=== PATIENT | male | born 1960 | race Caucasian/White ===

== ENCOUNTER 2018-04-28 06:56 | Day surgery (SDC) | payer OTHER ==
[~2018-04-28] VITALS: Ht 171.4 cm; Wt 94.0 kg
[2018-04-28] VITALS (12 sets, daily range): BP systolic 96–108; BP diastolic 56–74; PULSE 66–78; TEMP 97.7–97.9
[2018-04-28 07:43] LABS: HEMATOCRIT 42.7 % (42.0-52.0); HEMOGLOBIN 14.9 g/dl (13.5-18.0); MEAN CELL VOLUME 92 fl (80.0-100.0); MEAN CORPUSCULAR HEMOGLOBIN 32 pg (27.0-31.0); MEAN CORPUSCULAR HGB CONC 35 g/dl (33.0-37.0); MEAN PLATELET VOLUME 11.1 fl (7.4-10.4); PLATELET COUNT 201 K/mm3 (130-400); RED BLOOD COUNT 4.64 M/mm3 (4.20-5.60); REDCELL DISTRIBUTION WIDTH-CV 12.2 % (11.5-14.5)
[2018-04-28] MEDS ORDERED: PRINIVIL5 MG PO (07:58)
[2018-04-28] MEDS ORDERED: LIPITOR20 MG PO (07:58)
[2018-04-28] MEDS ORDERED: COREG 3.123.125 MG/T PO (07:58)
[2018-04-28] MEDS ORDERED: LASIX 20MG TABL20 MG PO (07:59)
[2018-04-28] MEDS ORDERED: ASPIRIN E.C. 8181 MG PO (07:59)
[2018-04-28 08:00] LABS: CALCIUM 9.6 mg/dL (8.4-10.2); CREATININE, serum 0.96 mg/dL (0.66-1.25); POTASSIUM 4.1 mmol/L (3.4-5.0); PROTHROMBIN TIME 11.6 SECONDS (9.7-12.8)
[2018-04-28] MEDS ORDERED: FLONASE NASAL S16 GM NS (08:00)
[2018-04-28] MEDS ORDERED: ZYRTEC 10MG10 MG PO (08:00)
[2018-04-28] MEDS ORDERED: VITAMIND3 5000 PO (08:01)
== END 2018-04-28 16:29 | disposition home or self-care (01) ==
LOC: COL.CAR 06:56
PROVIDERS: Internal Medicine Cardiovascular Disease
DX: I08.1 Rheumatic disorders of both mitral and tricuspid valves (principal); I50.9 Heart failure, unspecified; I27.20 Pulmonary hypertension, unspecified; Z79.82 Long term (current) use of aspirin; Z79.899 Other long term (current) drug therapy
CPT/HCPCS: J1644; J2250; J3010; Q9967

== ENCOUNTER 2018-10-30 15:35 | Outpatient (RCR) | payer OTHER ==
[~2018-10-30 15:35] MED LIST: ASPIRIN E.C. 8181 MG PO; COREG 3.123.125 MG/T PO; FLONASE NASAL S16 GM NS; LASIX 20MG TABL20 MG PO; LIPITOR20 MG PO; PRINIVIL5 MG PO; VITAMIND3 5000 PO; ZYRTEC 10MG10 MG PO
== END 2018-11-01 05:46 | disposition home or self-care (01) ==
LOC: COL.CR 15:35
DX: Z48.812 Encounter for surgical aftercare following surgery on the circulatory system (principal); I34.0 Nonrheumatic mitral (valve) insufficiency